=== PATIENT | female | born 2000 | race African-American/Black ===

== ENCOUNTER 2023-05-31 12:01 | Emergency (ER) | payer OTHER ==
[~2023-05-31] VITALS: Ht 162.6 cm; Wt 66.7 kg
== END 2023-05-31 15:44 | disposition home or self-care (01) ==
LOC: ER 12:01
DX: A90 Dengue fever [classical dengue] (principal); B34.9 Viral infection, unspecified; Z20.822 Contact with and (suspected) exposure to COVID-19